=== PATIENT | male | born 1965 ===

== ENCOUNTER → 2016-10-29 | Day surgery (SDC) | payer BC ==
--- NOTE | 2016-10-28 19:47 | Pre-op HX & Phy Repo 2 SIG ---
DATE OF ADMISSION: 10/29/2016 DATE OF SURGERY: 10/29/2016 PREOPERATIVE DIAGNOSIS: Dense vitreous hemorrhage right eye. BRIEF NOTE: This is a first [place] admission for the patient who is a 51-year-old gentleman who complained of blurred vision and large floaters in the right eye for the past few weeks. He has a history of proliferative diabetic retinopathy in both eyes and has undergone Avastin injections and extensive laser. In spite of this, he has developed significant hemorrhage in the right eye which effects his daily activities of living. He is admitted for vitrectomy. PAST MEDICAL HISTORY: Remarkable for diabetes for at least 16 years as well as heart disease. MEDICATIONS: He is on amlodipine, benazepril, atorvastatin, aspirin, metformin, and Lantus. ALLERGIES: He has no known allergies. SOCIAL HISTORY: He does not smoke or drink. PHYSICAL EXAMINATION: EYES: Best vision at the time of admission was 20/200 in the right eye in the left with pressures of 20 and 18. The anterior segments were quiet with significant nuclear sclerosis in either eye. Fundus examination of the right eye showed a very dense vitreous hemorrhage. The retina appeared attached. There was some degree of diabetic macular edema appreciated. The left fundus showed mild edema with nice pattern of peripheral laser. General physical examination be done by Dr. Yen. ASSESSMENT: Proliferative diabetic retinopathy with vitreous hemorrhage, right eye. PLAN: The plan is to perform a pars plana vitrectomy with membrane dissection, endolaser, and an Avastin injection on the right. The risks and benefits of surgery gone over the patient with potential for infection, hemorrhage, glaucoma, remote possibility of loss of the eye. The risk of anesthesia was discussed. The patient understands and consents to the surgery, which will be performed on tomorrow morning. Eliot Sanford M.D. DR: Sukhi JOB#: [id number] CC:
[2016-10-29] VITALS (8 sets, daily range): BP systolic 118–154; BP diastolic 74–87
[~2016-10-29] VITALS: Ht 172.7 cm; Wt 130.2 kg
[~2016-10-29] MED LIST: AMLODIPINE BESY10 MG ORAL; Avastin 10mg Inj IVITRE ONE; BENAZEPRIL HCL20 MG ORAL; BSS 15ml BTL ONE; BSS 500ml btl ONE; Bupivacaine 0.75% 30ml vial INJ ONE; Cyclopentolate 1% Opth Sol ONE; Dexamethasone 4mg/ml vial ONE; DiphenhydrAMINE 50mg/ml Inj IVP PRN; EPINEPHrine 1mg/1ml Amp ONE; Flurbiprofen 0.03% Opth Sol 2.5ml ONE; Gatifloxacin Opth Solution 0.5% ONE; Kenalog-10 5ml Inj ONE; Kenalog-40 1ml Vial ONE; LANTUS SOL100 UNIT/1 SUBQ; LR 1000ml 1,000 ML IVLG SCH; LR 1000ml ONE; Labetalol 5mg/ml 20ml vial IV ONE; Labetalol 5mg/ml 20ml vial IV PRN; Lidocaine 2% MPF 5ml Vial INJ ONE; METFORMIN HCL1000 M1 ORAL; Maxitrol Opth Oint 3.5gm ONE; Meperidine 25mg/ml Inj IV PRN; Midazolam 2mg/2ml Inj ONE; NS Irrig 1000ml ONE; Norco 5mg/325mg tab ORAL PRN; Phenylephrine 2.5% Op Soln ONE; Povidone-Iodine 5% opth solution ONE; Pred Forte 1% Opth Susp 1ml RIGHT EYE ONE; Propofol 10mg/ml 20ml IV ONE; Sodium Hyaluronate 10 mg/ml 0.85ml ONE; Sterile Water Irrig 1000ml IRRIG ONE; Tetracaine 0.5% Opth Soln ONE; fentaNYL 100 mcg/2 mL IV ONE
[2016-10-29 06:08] LABS: BASOPHILS % (AUTO) 0.6 % (0.0-2.0); EOSINOPHILS % (AUTO) 3.8 % (0.0-3.0); LYMPHOCYTES % (AUTO) 24.5 % (20.0-45.0); MEAN CORPUSCULAR HEMOGLOBIN 29.8 PG (27.0-31.0); MEAN CORPUSCULAR HGB CONC 32.7 G/DL (32.0-36.0); MEAN CORPUSCULAR VOLUME 91 FL (80-99); MEAN PLATELET VOLUME 11.2 FL (6.5-10.1); MONOCYTES % (AUTO) 8.6 % (1.0-10.0); NEUTROPHILS % (AUTO) 62.4 % (45.0-75.0); PLATELET COUNT 196 K/UL (150-450); RED BLOOD COUNT 5.39 M/UL (4.70-6.10); RED CELL DISTRIBUTION WIDTH 12.5 % (11.6-14.8); WHITE BLOOD COUNT 6.8 K/UL (4.8-10.8)
[2016-10-29] MEDS: Phenylephrine 2.5% Op Soln RIGHT EYE SCH ×3 (06:19→06:35)
[2016-10-29] MEDS: Gatifloxacin Opth Solution 0.5% RIGHT EYE SCH ×3 (06:19→06:35)
[2016-10-29] MEDS: Flurbiprofen 0.03% Opth Sol 2.5ml RIGHT EYE SCH ×3 (06:19→06:35)
[2016-10-29] MEDS: Cyclopentolate 1% Opth Sol RIGHT EYE SCH ×3 (06:19→06:35)
[2016-10-29 06:25] LABS: ANION GAP 15 (5-15); CALCIUM 9.2 mg/dL (8.6-10.2); CARBON DIOXIDE 25 mEQ/L (20-30); CHLORIDE 104 mEQ/L (98-107); GLOMERULAR FILTRATION RATE > 60 mL/min (>60); HEMOLYSIS 71; POTASSIUM 4.8 mEQ/L (3.4-4.9); SODIUM 144 mEQ/L (135-145)
--- NOTE | 2016-10-29 06:34 | Pre-Procedure Note/Attestation ---
Pre-Procedure Note/Attestation Complete Prior to Procedure Planned Procedure: right Procedure Narrative: PPV, membrane peel, endolaser, Avastin injection R eye Indications for Procedure Pre-Operative Diagnosis: Non-clearing vitreous heme R eye Attestation I attest that I discussed the nature of the procedure; its benefits; risks and complications; and alternatives (and the risks and benefits of such alternatives ), prior to the procedure, with the patient (or the patient's legal aircraft sales representative). I attest that, if there was a reasonable possibility of needing a blood transfusion, the patient (or the patient's legal aircraft sales representative) was given the [facility] standardized written summary, pursuant to the Deven Kamryn Blood Safety Act ([place] Health and Safety Code # 1645, as amended). I attest that I re-evaluated the patient just prior to the surgery and that there has been no change in the patient's H&P, except as documented below: KEAGAN BREWER Oct 29, 2016 06:34
--- NOTE | 2016-10-29 07:41 | Anethesia Preoperative Eval ---
Anesthesia Pre-op PMH/ROS General Date of Evaluation: Oct 29, 2016 Time of Evaluation: 07:41 Anesthesiologist: Babatunde ASA Score: ASA 3 Mallampati Score Class I : Soft palate, uvula, fauces, pillars visible Class II: Soft palate, uvula, fauces visible Class III: Soft palate, base of uvula visible Class IV: Only hard plate visible Mallampati Classification: Class III Surgeon: Claribel Diagnosis: R eye vitreous hemorrhage Surgical Procedure: R eye PPV Anesthesia History: none Social History: current smoker Family History: no anesthesia problems Allergies: Coded Allergies: No Known Allergies (Unverified , 10/23/16) Medications: see eMAR Past Medical History Cardiovascular: Reports: HTN, Denies: CAD, CA, arrhythmia, other, valve dz Pulmonary: Reports: DONYA, Denies: COPD, asthma, other Gastrointestinal/Genitourinary: Reports: GERD, Denies: CRI, ESRD, other Neurologic/Psychiatric: Denies: CVA, TIA, dementia, depression/anxiety, other Endocrine: Reports: DM - Poorly controlled high dose of insulin, Denies: hypothyroidism, other, steroids HEENT: Reports: cataract (L), cataract (R), other, Denies: NIKOLSKI (L), NIKOLSKI (R), glaucoma Hematology/Immune: Denies: DVT, anemia, bleeding disorder, other Musculoskeletal/Integumentary: Denies: DDD, DJD, OA, RA, edema, other Other: obesity PMH Narrative: as above PSxH Narrative: None Anesthesia Pre-op Phys. Exam Physician Exam Last Vital Signs Date Time Temp Pulse Resp B/P Pulse Ox O2 Delivery O2 Flow Rate FiO2 10/29/16 06:00 97.2 85 20 154/81 99 Room Air Constitutional: NAD Neurologic: CN 2-12 intact Cardiovascular: RRR, no M/R/G Respiratory: other - some wheezing diminished breath sounds Gastrointestinal: other - morbid obesity Airway Exam Mallampati Score: Class III MO: full Neck: Short ROM: limited Teeth: intact Dentures: no lower, no upper Anesthesia Pre-op A/P Labs Hematology Test 10/29/16 05:30 White Blood Count 6.8 K/UL (4.8-10.8) Red Blood Count 5.39 M/UL (4.70-6.10) Hemoglobin 16.1 G/DL (14.2-18.0) Hematocrit 49.1 % (42.0-52.0) Mean Corpuscular Volume 91 FL (80-99) Mean Corpuscular Hemoglobin 29.8 PG (27.0-31.0) Mean Corpuscular Hemoglobin Concent 32.7 G/DL (32.0-36.0) Red Cell Distribution Width 12.5 % (11.6-14.8) Platelet Count 196 K/UL (150-450) Mean Platelet Volume 11.2 FL (6.5-10.1) H Neutrophils (%) (Auto) 62.4 % (45.0-75.0) Lymphocytes (%) (Auto) 24.5 % (20.0-45.0) Monocytes (%) (Auto) 8.6 % (1.0-10.0) Eosinophils (%) (Auto) 3.8 % (0.0-3.0) H Basophils (%) (Auto) 0.6 % (0.0-2.0) Chemistry Test 10/29/16 05:30 Sodium Level 144 mEQ/L (135-145) Potassium Level 4.8 mEQ/L (3.4-4.9) Chloride Level 104 mEQ/L (98-107) Carbon Dioxide Level 25 mEQ/L (20-30) Anion Gap 15 (5-15) Blood Urea Nitrogen 17 mg/dL (7-23) Creatinine 1.0 mg/dL (0.7-1.2) Estimat Glomerular Filtration Rate > 60 mL/min (>60) Glucose Level 137 mg/dL (74-106) H Calcium Level 9.2 mg/dL (8.6-10.2) Studies Pre-op Studies: EKG - NSR Risk Assessment & Plan Assessment: ASA 3 Plan: MAC with retrobulbar block Status Change Before Surgery: No Pre-Antibiotics Drug: none EARL KESSLER M.D. Oct 29, 2016 07:41
--- NOTE | 2016-10-29 08:37 | Brief Operative Note ---
Immediate Post Operative Note Operative Note Chief Complaint: Clouds in vision R eye Pre-op Diagnosis: Non-clearing vitreous heme R eye Procedure: PPV, membrane dissection, Endolaser (1369 spots), Avastin injection (1.25mg) Right eye Post-op Diagnosis: same as pre-op Surgeon: Claribel Anesthesiologist: Babatunde Anesthesia: MAC Specimen: none Complications: none Condition: stable Estimated Blood Loss: none Drains: none Implant(s) used?: No KEAGAN BREWER Oct 29, 2016 08:37
--- NOTE | 2016-10-29 08:38 | Immediate Post-Op Evaluation ---
Immediate Post-Op Evalulation Immediate Post-Op Evalulation Procedure: R eye PPV Date of Evaluation: Oct 29, 2016 Time of Evaluation: 08:36 IV Fluids: 800 Blood Products: none Estimated Blood Loss: min Urinary Output: none Blood Pressure Systolic: 123 Blood Pressure Diastolic: 81 Pulse Rate: 74 Respiratory Rate: 20 O2 Sat by Pulse Oximetry: 99 Temperature (Fahrenheit): 97.3 Pain Score (1-10): 1 Nausea: No Vomiting: No Complications none Patient Status: awake, patent, none Hydration Status: adequate EARL KESSLER M.D. Oct 29, 2016 08:38
--- NOTE | 2016-10-29 11:38 | Pre-op HX & Phy Repo 2 SIG ---
DATE OF ADMISSION: 10/29/2016 REASON FOR EVALUATION: I was asked by Dr. Eliot Sanford to see this 51-year-old male, who is going for elective surgery on the right eye. The patient has vitreous hemorrhage, right eye. Please see full ophthalmology history and physical by Dr. Eliot Sanford. The patient was examined. Chart was reviewed. The patient is [place]ian-speaking. We obtained information from the at bedside. PAST MEDICAL HISTORY AND REVIEW OF SYSTEMS: Remarkable for insulin-dependent diabetes mellitus, hypertension, and obesity. The patient denies history of stroke, seizures. No heart attack, chest pain, or palpitation. Denies history of GI bleeding, ulcer disease, or acid reflux. Denies history of renal failure. Denies history of anemia or thyroid problems. No prostate problems. PAST SURGICAL HISTORY: None. FAMILY HISTORY: Both parents have diabetes mellitus. Both . ALLERGIES: Not known. PRESENT MEDICATIONS: Include metformin 1000 mg daily, amlodipine 10 mg daily, benazepril 20 mg, and Lantus 44 units at bedtime. Last dose was 7 p.m. yesterday. The patient also takes weekly vitamin. HABITS: The patient smokes occasionally, alcohol socially with no street drug. PHYSICAL EXAMINATION: GENERAL: Alert, overweight male in his 50s. The patient's weight 283 pounds and 5 feet 8 inches tall. The patient's BMI is 43.6 kg/m2. VITAL SIGNS: Blood pressure 154/81, temperature 97.8 degrees, pulse 81, respirations 20, and O2 saturation 99% on room air. SKIN: The patient has clear skin. Dry and warm. No rashes. LYMPHATICS: Lymph nodes are not enlarged. HEENT: Head normocephalic, atraumatic. Ears clear. Nose clear. No discharge. Eyes, full description per Dr. Eliot Sanford. Mouth clear and moist. No dentures. NECK: Supple. No jugular venous distention. Carotids are 2+. Trachea midline. LUNGS: Clear. No rales or rhonchi. HEART: Sinus rhythm. No murmur. No S3 or S4. ABDOMEN: Soft, obese. No palpable mass. No rebound. GENITOURINARY TRACT: CVA nontender. NEUROLOGIC SYSTEM: No tremor. No nystagmus. No asymmetry. LABORATORY AND DIAGNOSTIC DATA: Electrocardiogram, normal sinus rhythm, normal ECG. The patient's last p.o. intake 5 p.m. yesterday. Laboratory, blood sugar 133. Hemoglobin 16 and hematocrit 49. IMPRESSION: 1. Vitreous hemorrhage, right eye. 2. Hypertension. 3. Insulin-dependent diabetes mellitus. 4. Obesity. Body-mass index of 43.6. PLAN: Pars plana vitrectomy, membrane peel, endolaser, right eye per Dr. Eliot Sanford. CONCLUSION: The patient's other medical problems are hypertension controlled, diabetes mellitus controlled, obesity morbid. The patient's EKG is normal. Vital signs stable. Laboratories checked and in normal limit. The patient's condition optimized for surgery. RECOMMENDATION: Attention to the patient's obesity, diet, possible stomach bypass surgery per primary care physician. The patient education, [id number] spent with the patient is 60 minutes. The patient's condition optimized for surgery. Gomez Yen M.D. DR: Georgina JOB#: [id number] CC:
--- NOTE | 2016-10-29 12:27 | Operative Note - Dictated ---
DATE OF OPERATION: 10/29/2016 PREOPERATIVE DIAGNOSIS: Nonclearing vitreous hemorrhage with traction, right eye. POSTOPERATIVE DIAGNOSIS: Nonclearing vitreous hemorrhage with traction, right eye. PROCEDURES: 1. Pars plana vitrectomy. 2. Membrane dissection. 3. Endolaser. 4. Avastin injection, right eye. SURGEON: Eliot Sanford M.D. FIELD SERVICES DIRECTOR: None. ANESTHESIA: Local sedation. ANESTHESIOLOGIST: Juan Fine M.D. JUSTIFICATION FOR SURGERY: This 51-year-old gentleman developed a significant vitreous hemorrhage with multiple small traction sites in the right eye. BRIEF NOTE: The patient brought to the operating room, placed on operating room table in supine position. After a time-out was performed and agreed upon by the staff retrobulbar and Van Lint blocks were given to the right eye in the standard way. When the blocks taken effect, he was prepped and draped in normal manner. A lid speculum was inserted into the right eye. Using a 23-gauge trocar system cannulas were placed in all except infranasal quadrant. Infusion secured inferotemporally. Vitrectomy was done posterior to the crystalline lens taking care to avoid contact. A central core vitrectomy was done followed by peripheral vitrectomy leaving a small vitreous skirt. The posterior hyaloid was noted to be attached to the retina at multiple sites. These were gently engaged with suction for identification and dissected back to flush with the retina without complication. No significant bleeding was encountered. With the retina now clean, the Endolaser was brought into the eye and a power of 0.4 frederick, duration 0.2 seconds, a total of 1369 lesions were applied principally in the far periphery anterior to the equator in areas that had been previously lightly treated and that were obscured by blood. This went without difficulty. Scleral depression was then performed and no peripheral breaks, tears, detachments were seen. The 2 superior cannulas were removed from the eye and the wounds noted to be self-sealing. The infusion was disconnected and through this port Avastin 1.25 mg was injected. The eye was reinflated and this cannula also removed and the sclerotomy noted to self seal. Subconjunctival Decadron and gentamicin were then given and Maxitrol and atropine ointments were instilled. The eye was patched and shielded. The patient taken to recovery in excellent condition. There were no complications. Eliot Sanford M.D. DR: Flori JOB#: [id number] CC: Eliot Sanford M.D.; Fax#: [phone]
--- NOTE | 2016-10-29 15:28 | Cardiology Report ---
APPROVED REPORT EKG Measurement Heart [id number] Normal sinus rhythm Normal ECG
[2016-10-30 13:35] VITALS: BP 142/64
--- NOTE | 2016-10-30 13:35 | 48 Hour Post Anesthesia Eval ---
Post Anesthesia Evaluation Procedure: R eye PPV Date of Evaluation: Oct 29, 2016 Time of Evaluation: 10:20 Blood Pressure Systolic: 142 0: 64 Pulse Rate: 68 Respiratory Rate: 20 Temperature (Fahrenheit): 97.5 O2 Sat by Pulse Oximetry: 98 Airway: patent Nausea: No Vomiting: No Pain Intensity: 1 Hydration Status: adequate Cardiopulmonary Status: stable Mental Status/LOC: patient returned to baseline Follow-up Care/Observations: n/a Post-Anesthesia Complications: none Follow-up care needed: ready to discharge EARL KESSLER M.D. Oct 30, 2016 13:35
== END | disposition home or self-care (01) ==
LOC: SUR 05:13
DX: H43.11 Vitreous hemorrhage, right eye (principal); H43.821 Vitreomacular adhesion, right eye; E11.3511 Type 2 diabetes mellitus with proliferative diabetic retinopathy with macular edema, right eye; Z79.4 Long term (current) use of insulin; Z79.84 Long term (current) use of oral hypoglycemic drugs; I10 Essential (primary) hypertension; E66.01 Morbid (severe) obesity due to excess calories; Z68.41 Body mass index [BMI] 40.0-44.9, adult; F17.200 Nicotine dependence, unspecified, uncomplicated; G47.33 Obstructive sleep apnea (adult) (pediatric); K21.9 Gastro-esophageal reflux disease without esophagitis
CPT/HCPCS: 36415; 80048; 82962; 85025; 93005; 94003; 94150; J2250; J9035